=== PATIENT | female | born 2000 | race Two or more races ===

== ENCOUNTER 2021-12-01 17:05 | Emergency (ER) | payer MEDICAID, OTHER ==
[~2021-12-01] VITALS: Ht 144.8 cm; Wt 63.5 kg
[2021-12-01 17:19] VITALS: BP 115/72
== END 2021-12-01 23:49 | disposition left against medical advice (07) ==
LOC: ER 17:05
DX: R10.33 Periumbilical pain (principal); K59.00 Constipation, unspecified